=== PATIENT | male | born 1970 | race Caucasian/White ===

== ENCOUNTER 2016-11-23 13:24 | Emergency (ER) | payer MEDICAID ==
[~2016-11-23] VITALS: Ht 170.2 cm; Wt 85.3 kg
[~2016-11-23 13:24] MED LIST: [UNRECOGNIZED DRUG - REMARK]
--- NOTE | 2016-11-23 13:37 | NUR ---
Patient ambulated to bed 04.
[2016-11-23 13:39] VITALS: BP 103/59
--- NOTE | 2016-11-23 13:41 | NUR ---
PATIENT PRESENTS TO ED WITH C/O SORE THROAT SINCE THIS AM. DENIES N/V/D; SKIN IS PINK/WARM/DRY; AAOX4 WITH EVEN AND STEADY GAIT; LUNGS CLEAR BL; HR EVEN AND REGULAR; PT DENIES ANY FEVER, CP, SOB, AT THIS TIME; PATIENT STATES PAIN OF 7/10 AT THIS TIME; VSS; PATIENT POSITIONED FOR COMFORT; HOB ELEVATED; BEDRAILS UP X2; BED DOWN. ER MD MADE AWARE OF PT STATUS.
--- NOTE | 2016-11-23 13:42 | NUR ---
Dr. Barrientos evaluating patient at bedside.
[2016-11-23] MEDS ORDERED: DEXAMETHASONE 4 MG/ML VIAL PO ONE (13:55)
[2016-11-23 14:01] VITALS: BP 112/72
--- NOTE | 2016-11-23 14:01 | NUR ---
Patient discharged with v/s stable. Written and verbal after care instructions given and explained. Patient verbalized understanding. Ambulatory with steady gait. All questions addressed prior to discharge. Advised to follow up with PMD.
== END 2016-11-23 14:01 | disposition home or self-care (01) ==
LOC: MED 13:24
DX: J02.8 Acute pharyngitis due to other specified organisms (principal); B97.89 Other viral agents as the cause of diseases classified elsewhere; E11.9 Type 2 diabetes mellitus without complications; F17.200 Nicotine dependence, unspecified, uncomplicated; Z71.6 Tobacco abuse counseling
CPT/HCPCS: 99283; J1100

== ENCOUNTER 2016-12-05 07:30 | Emergency (ER) | payer MEDICAID ==
[~2016-12-05] VITALS: Ht 170.2 cm; Wt 81.6 kg
[2016-12-05 07:37] VITALS: BP 109/50
--- NOTE | 2016-12-05 07:50 | NUR ---
PATIENT PRESENTS TO ED WITH C/O MECHANICAL FALL X 4 DAYS AGO---INJURED BRIDGE OF NOSE, NOW C/O HEADACHE, DIZZINESS, FATIGUE X LAST NIGHT;HX DM; DENIES N/V/D; SKIN IS PINK/WARM/DRY; AAOX4 WITH EVEN AND STEADY GAIT; LUNGS CLEAR BL; HR EVEN AND REGULAR; PT DENIES ANY FEVER, CP, SOB, OR COUGH AT THIS TIME; PATIENT STATES PAIN OF 9/10 AT THIS TIME; VSS; PATIENT POSITIONED FOR COMFORT; HOB ELEVATED; BEDRAILS UP X2; BED DOWN. ER MD MADE AWARE OF PT STATUS.
--- NOTE | 2016-12-05 08:00 | NUR ---
AAO PT BEING ASSESS BY DR HILARIO AT BEDSIDE
[2016-12-05 08:20] VITALS: BP 119/61
== END 2016-12-05 08:20 | disposition home or self-care (01) ==
LOC: MED 07:30
DX: R51 Headache (principal); E11.9 Type 2 diabetes mellitus without complications